=== PATIENT | male | born 1975 | race Two or more races ===

== ENCOUNTER 2019-02-03 10:43 | Emergency (ER) | payer MEDICARE, MEDICAID ==
[~2019-02-03] VITALS: Ht 170.2 cm; Wt 86.2 kg
[2019-02-03 13:45] LABS: Basophils # (auto) 0.1 uL; Basophils % (auto) 0.8 % (0.0-2.0); Eosinophils # (auto) 0.3 uL; Eosinophils % (auto) 3.2 % (0.0-7.0); Hematocrit 45.9 % (41.0-53.0); Hemoglobin 15.4 g/dL (13.5-17.5); Lymphocytes # (auto) 3.5 uL; Lymphocytes % (auto) 38.9 % (10.0-50.0); Mean Corpuscular Hemoglobin 28.5 pg (28.0-32.0); Mean Corpuscular Hgb Conc. 33.5 g/dL (32.0-36.0); Monocytes # (auto) 0.7 uL; Neutrophils # (auto) 4.4 uL; Neutrophils % (auto) 49.1 % (37.0-80.0); Nucleated Red Blood Cells % 0.1 %; Platelet Count (auto) 303 10^3/uL (140-450); Red Cell Distribution Width 13.6 % (11.8-14.3)
[2019-02-03 14:03] LABS: Albumin 3.7 g/dL (3.4-5.0); BUN/Creatinine Ratio 11.5; Potassium 4.1 mmol/L (3.5-5.1)
[2019-02-03 14:08] LABS: Bilirubin, Total 1.2 mg/dL (0.2-1.0); Total Protein 7.8 g/dL (6.4-8.2)
[2019-02-03 17:30] VITALS: BP 117/72
== END 2019-02-03 17:45 | disposition home or self-care (01) ==
LOC: ER 10:51
DX: H10.32 Unspecified acute conjunctivitis, left eye (principal); K80.20 Calculus of gallbladder without cholecystitis without obstruction; B34.9 Viral infection, unspecified
CPT/HCPCS: 36415; 74176; 80053; 85025

== ENCOUNTER 2021-12-25 11:30 | Emergency (ER) | payer MEDICARE, MEDICAID ==
[~2021-12-25] VITALS: Ht 170.2 cm; Wt 95.4 kg
[2021-12-25] MEDS ORDERED: FLUORESCEIN SOD OPTH TEST STRIP RIGHTEYE ONE (13:30)
[2021-12-25] MEDS ORDERED: TETRACAINE HCL 0.5% OPTH(EYE) SOLN 4ML RIGHTEYE ONE (13:30)
[2021-12-25] MEDS ORDERED: POLYSOL15 OP (13:37)
[2021-12-25 14:45] VITALS: BP 136/74
== END 2021-12-25 16:15 | disposition home or self-care (01) ==
LOC: ER 11:30
DX: S05.01XA Injury of conjunctiva and corneal abrasion without foreign body, right eye, initial encounter (principal); Z79.899 Other long term (current) drug therapy; X58.XXXA Exposure to other specified factors, initial encounter; Y93.89 Activity, other specified; Y92.89 Other specified places as the place of occurrence of the external cause; Y99.8 Other external cause status

== ENCOUNTER 2023-02-16 13:43 | Emergency (ER) | payer MEDICAID, MEDICARE ==
[~2023-02-16] VITALS: Ht 162.6 cm; Wt 112.6 kg
[~2023-02-16 13:43] MED LIST: POLYSOL28 OP
[2023-02-16 14:26] VITALS: BP 129/90; PULSE 100; RESP 18; TEMP 97.2; O2SAT 95
[2023-02-16] MEDS ORDERED: CIPR0.3S67 OP (15:45)
== END 2023-02-16 15:54 | disposition home or self-care (01) ==
LOC: ER 13:43
DX: H10.31 Unspecified acute conjunctivitis, right eye (principal); G44.209 Tension-type headache, unspecified, not intractable
CPT/HCPCS: 70450